=== PATIENT | female | born 1945 | race Caucasian/White ===

== ENCOUNTER 2018-11-14 11:18 | Emergency (ER) | payer OTHER ==
--- NOTE | 2018-11-14 11:30 | EDPHY ---
H & P Time Seen by Provider: 11/14/18 11:29 HPI/ROS: CHIEF COMPLAINT: Right shoulder injury post mechanical fall HISTORY OF PRESENT ILLNESS: 73-year-old female no anticoagulant use, arrives via private vehicle complaining of acute right shoulder and clavicle pain which occurred this morning when she was running after her dog, slipped on the grass and fell forward on to her shoulder primarily. Did not impact her head. This was not a syncopal episode. Her only complaint is right clavicle and right shoulder pain. No paresthesia. Limited range of motion of the right upper extremity secondary to pain at the shoulder. Denies: Head injury, midline C-spine pain, back pain, abdominal pain, peripheral paresthesia, weakness, numbness, alcohol or drug use PRIMARY CARE PROVIDER:[facility] REVIEW OF SYSTEMS: 10 systems reviewed and negative with the exception of the elements mentioned in the history of present illness PAST MEDICAL/SURGICAL HISTORY: no anticoagulant use, SOCIAL HISTORY: denies alcohol use at time of incident PHYSICAL EXAM 1) GENERAL: Well-developed, well-nourished, alert and oriented. Appears to be in no acute distress. Answering questions appropriately. 2) HEAD: Normocephalic, atraumatic 3) HEENT: Pupils equal, round, reactive to light bilaterally. 4) NECK: No cervical collar is on. Posterior cervical spine is nontender, no stepoff, no effusion. Full range of motion which does not elicit any midline cervical spine pain, no posterior midline tenderness, no step-off. 5) LUNGS: Clear to auscultation bilaterally, no wheezes, no rhonchi, no retractions. No obvious signs of trauma. No chest wall pain. No flaring, no grunting. Moving symmetrically. No crepitus. 6) HEART: [Regular rate and rhythm, 7) ABDOMEN: No guarding, no rebound, no focal tenderness, no peritoneal signs, no signs of trauma, no ecchymosis 8) MUSCULOSKELETAL: Right upper extremity: Guarding right shoulder, tender to palpation right shoulder with no visible trauma, no abrasion laceration, no step -off. Normal anatomic landmarks. Tender to palpation lateral clavicle. No crepitus. Remainder right upper extremity is nontender. Radial ulnar median nerve function intact. Axillary nerve function intact. Otherwise, Moving all extremities, no focal areas of tenderness, no obvious trauma. 9) BACK: No midline vertebral tenderness, no fluctuance, no step-off, no obvious trauma, no visual or palpable abnormality. 10) SKIN: No laceration. No abrasion DIFFERENTIAL DIAGNOSIS: In no particular order including but not limited to fracture, sprain, strain, dislocation Constitutional: Initial Vital Signs Temperature (C) 37.1 C 11/14/18 11:28 Heart Rate 79 11/14/18 11:28 Respiratory Rate 18 11/14/18 11:28 Blood Pressure 151/111 H 11/14/18 11:28 O2 Sat (%) 94 11/14/18 11:28 O2 Delivery Mode Room Air Allergies/Adverse Reactions: No Known Allergies Allergy (Unverified 11/14/18 11:31) Home Medications: Medication Instructions Recorded Hydrocodone/APAP 5/325 [[place] 1 tab PO Q6 PRN #5 tab 11/14/18 5/325 (RX)] MDM/Departure - MDM Imaging Results: Imaging Impressions Clavicle X-Ray 11/14/18 11:34 Impression: 1. No evidence of clavicle fracture. 2. Fractures associated with the proximal right humerus. Shoulder X-Ray 11/14/18 11:34 Impression: 1. Transverse nondisplaced subcapital fracture right proximal humerus. 2. Nondisplaced fracture right greater tuberosity. Images reviewed myself Procedures: Procedure: Splint Upper extremity sling splint was applied by ER solar installation technician. After application of the splint I returned and re-examined the patient. The splint was adequately immobilizing the joint and distal to the splint the patient's circulation and sensation were intact. Patient shows no signs of compartment syndrome. Was given orthopedic precautions. ED Course/Re-evaluation: Re-evaluation with serial exams. Reviewed her imaging studies showing humeral neck fracture greater tubercle fracture. She is neurovascularly intact with no evidence of open fracture. She will need follow-up with orthopedics has been given this referral information. Placed into a sling. She feels comfortable being discharged. Given analgesia prescription. Given my usual andcustomary analgesia precautions instructions. All questions and concerns addressed by myself. Care of patient under supervision of secondary supervising physician Dr Berry with whom I discussed case. - Depart Disposition: Home, Routine, Self-Care Clinical Impression: Humeral surgical neck fracture Qualifiers: Encounter type: initial encounter Fracture type: closed Fracture morphology: 2- part Fracture alignment: nondisplaced Laterality: right Qualified Code(s): S42.224A - 2-part nondisplaced fracture of surgical neck of right humerus, initial encounter for closed fracture Condition: Good Instructions: Arm Fracture in Adults (ED) Additional Instructions: Return to the ER immediately if you experience discoloration, have worsening pain, numbness, tingling, or any other symptoms that concern you. If you received x-rays in the emergency department today, be advised, that ligamentous , tendon, muscular, and other non-bony injury cannot be fully ruled out. Try to keep your affected extremity elevated above the level of your chest, and keep cold packs on the affected area, for the next 48 hours. Prescriptions: Hydrocodone/APAP 5/325 [[place] 5/325 (RX)] 1 tab PO Q6 PRN #5 tab PRN Reason: Pain, Severe Referrals: Rachel Simmons MD [Medical Doctor] - 2-3 days, call for appt.
[2018-11-14 12:47] VITALS: BP 133/74
== END 2018-11-14 12:45 | disposition home or self-care (01) ==
DX: S42.224A 2-part nondisplaced fracture of surgical neck of right humerus, initial encounter for closed fracture (principal); W01.0XXA Fall on same level from slipping, tripping and stumbling without subsequent striking against object, initial encounter; Y92.9 Unspecified place or not applicable; Y93.K9 Activity, other involving animal care; Y99.9 Unspecified external cause status
CPT/HCPCS: 73000; 73030; 99283; A4565